=== PATIENT | male | born 1990 | race American Indian/Alaskan Native ===

== ENCOUNTER 2022-01-12 20:46 | Emergency (ER) | payer SELFPAY ==
[2022-01-12] MEDS ORDERED: Tetracaine HCl/PF 0.5% 4 ML Bottle EYERT ONE (21:01)
[2022-01-12] MEDS ORDERED: Ibuprofen 600 MG Tab PO ONE (21:21)
== END 2022-01-12 21:45 | disposition home or self-care (01) ==
LOC: LL.ED 20:46
DX: S05.01XA Injury of conjunctiva and corneal abrasion without foreign body, right eye, initial encounter (principal); Z88.8 Allergy status to other drugs, medicaments and biological substances; W45.8XXA Other foreign body or object entering through skin, initial encounter
CPT/HCPCS: 99283; A9270